=== PATIENT | male | born 1965 | race Caucasian/White ===

== ENCOUNTER 2019-10-30 21:07 | Emergency (ER) | payer SELFPAY ==
[2019-10-30 21:13] VITALS: TEMP 97.8; BMI 23.7
--- NOTE | 2019-10-30 21:33 | PDOC ---
History of Present Illness - General Chief Complaint: Shortness of Breath Stated Complaint: SHORTNESS OF BREATH Time Seen by Provider: 10/30/19 21:33 History Source: Patient Exam Limitations: No Limitations - History of Present Illness Initial Comments: HPI: This is a 54 y/o male, former heavy smoker, with no reported PMH presenting due to shortness of breath for the past day and a half. He stated that he was in the [place] all weekend for the [place] and during the drive home he suddenly experienced "labored breathing." He states the SOB is worse when he is laying down, and improves when he props himself up. He is complaining of accompanying "tightness between my shoulder blades." He denies chest pain, nausea, vomiting, weakness, headache, or LOC. ROS: GENERAL/CONSTITUTIONAL: No fever or chills. No weakness. CARDIOVASCULAR: No chest pain. Yes shortness of breath. RESPIRATORY: No cough, wheezing, or hemoptysis. GASTROINTESTINAL: No nausea, vomiting MUSCULOSKELETAL: "Tightness between shoulder blades", no joint pain NEUROLOGIC: No headache, vertigo, loss of consciousness, or change in strength/sensation. HEMATOLOGIC/LYMPHATIC: No history of blood clots, or anemia EXTREMITIES: No calf swelling, no calf pain ABDOMINAL: Denies abdominal pain, diarrhea, constipation PMH: Denies Meds: Denies Allergies: Denies PE: GENERAL: Awake, alert, and fully oriented, in no acute distress HEAD: No signs of trauma EYES: PERRL, EOMI NECK: Normal ROM LUNGS: Breath sounds equal, clear to auscultation bilaterally. No wheezes, and no crackles HEART: Regular rate and rhythm, normal S1 and S2, no murmurs, rubs or gallops ABDOMEN: Soft, nontender, normoactive bowel sounds. No guarding, no rebound. No masses EXTREMITIES: Normal range of motion, no edema. No clubbing or cyanosis. No cords, erythema, or tenderness NEUROLOGICAL: Cranial nerves II through XII grossly intact. Normal speech, normal gait SKIN: Warm, Dry, normal turgor, no rashes or lesions noted. MDM: 10/30/19 23:46 This is a 54 y/o male former smoker presenting due to sudden onset SOB that started yesterday. Given his smoking history and presentation, a CTA will be done to rule out a PE. - Signed out to Dr. Hodges 10/31/19 00:10 11/03/19 17:54 Past History - Medical History Allergies/Adverse Reactions: Allergies Allergy/AdvReac Type Severity Reaction Status Date / Time No Known Allergies Allergy Verified 10/30/19 21:13 COPD: No - Psycho-Social/Smoking History Smoking History: Never smoked - Substance Abuse Hx (Audit-C & DAST Scrn) How often the patient has a drink containing alcohol: 2-3 times / week Number of drinks the patient has on a typical day: 5 or 6 How often the patient has six or more drinks on one occasion: Weekly Score: In Men: 4 or > Positive; In Women: 3 or > Positive: 8 Screen Result (Pos requires Nsg. Audit-10AR): Positive In the last yr the pt used illegal drug/Rx for NonMed reason: No Score: Yes response is considered Positive: 0 Screen Result (Positive result requires Nsg. DAST-10): Negative *Physical Exam - Vital Signs Last Vital Signs Temp Pulse Resp BP Pulse Ox 97.8 F 62 18 151/87 98 10/30/19 21:10 10/30/19 21:10 10/30/19 21:10 10/30/19 21:10 10/30/19 21:10 ED Treatment Course - LABORATORY CBC & Chemistry Diagram: 10/30/19 22:40 10/30/19 22:40 Discharge - Discharge Information Problems reviewed: Yes Clinical Impression/Diagnosis: Chest tightness, Shortness of breath Condition: Stable Disposition: HOME - Follow up/Referral Referrals: [facility] [place] [facility] at [place] [Provider Group] - Patient Discharge Instructions Patient Printed Discharge Instructions: DI for Shortness of Breath Additional Instructions: Please make a follow up appointment with a primary care doctor (referral provided here). Please use the albuterol inhaler 2 puffs every 4 to 6 hours as needed for your tightness on inhalation. If you experience any new, worsening, or concerning symptoms, including worsening shortness of breath, chest pain, dizziness, headache, leg swelling, or any other concerns, please return to the emergency department. - Post Discharge Activity
[2019-10-30 22:53] LABS: BASO % 0.5 % (0-2.0); EOS % 3.6 % (0-4.5); HEMATOCRIT 44.7 % (35.4-49); LYMPH % 11.5 % (8-40); MCH 31.4 pg (25.7-33.7); MCHC 33.5 g/dl (32.0-35.9); MEAN CELL VOLUME 93.9 fl (80-96); MONO % 7.9 % (3.8-10.2); NEUT % 76.5 % (42.8-82.8); PLATELET COUNT 178 K/MM3 (134-434); RBC 4.76 M/mm3 (4.00-5.60); RDW 12.8 % (11.9-15.9); WHITE BLOOD COUNT 10.5 K/mm3 (4.0-10.0)
[2019-10-30 23:23] LABS: ALK PHOS 95 U/L (45-117); ANION GAP 7 MMOL/L (8-16); BILIRUBIN,TOTAL 0.4 mg/dL (0.2-1); BLOOD UREA NITROGEN 20.3 mg/dL (7-18); CALCIUM 8.7 mg/dL (8.5-10.1); CHLORIDE 107 mmol/L (98-107); CO2 25 mmol/L (21-32); CREATININE 1.3 mg/dL (0.55-1.3); GLUCOSE,RANDOM 106 mg/dL (74-106); POTASSIUM 3.8 mmol/L (3.5-5.1); SGOT/AST 17 U/L (15-37); SGPT/ALT 22 U/L (13-61); SODIUM 139 mmol/L (136-145); TOT PROT 7.5 g/dl (6.4-8.2)
[2019-10-30] MEDS ORDERED: SODIUM CHLORIDE 0.9% 500 ML INFUS.BAG IV ONE (23:42)
--- NOTE | 2019-10-31 00:02 | PDOC ---
Documentation entered by Jefferson Brower SCRIBE, acting as scribe for Marielle Polanco MD. Marielle Polanco MD: This documentation has been prepared by the Inocente longoria Nirvannie, SCRIBE, under my direction and personally reviewed by me in its entirety. I confirm that the documentation accurately reflects all work, treatment, procedures, and medical decision making performed by me. Attending Attestation - Resident Resident Name: Janiya Fonseca - ED Attending Attestation I have performed the following: I have examined & evaluated the patient, The case was reviewed & discussed with the resident, I agree w/resident's findings & plan, Exceptions are as noted - HPI HPI: 10/30/19 23:54 54 yo male presents with c/o shortness of breath after a weekend fly fishing in the [facility] [place] , He quit tobacco use about 8 years ago after smoking for 15 years. He does not see a physician and takes no prescription medications - Physicial Exam PE: 10/31/19 00:00 wnwd 54 yo male p/w shortness of breath that worsens when he is supine head ncat neck supple lungs no wheezing,no crackles cvs [id number] abdomen flat, nontender skin warm and dry neuro axox3, ambulatory, motor strength 5/5, b/l - Medical Decision Making 10/31/19 01:22 ekg is nsr @ 62 bpm negative troponin cxr napd cta chest pending Discharge - Discharge Information Problems reviewed: Yes Clinical Impression/Diagnosis: Chest tightness, Shortness of breath Condition: Stable Disposition: HOME - Follow up/Referral Referrals: [facility] [place] [facility] [place] [Provider Group] - Patient Discharge Instructions Patient Printed Discharge Instructions: DI for Shortness of Breath Additional Instructions: Please make a follow up appointment with a primary care doctor (referral provided here). Please use the albuterol inhaler 2 puffs every 4 to 6 hours as needed for your tightness on inhalation. If you experience any new, worsening, or concerning symptoms, including worsening shortness of breath, chest pain, dizziness, headache, leg swelling, or any other concerns, please return to the emergency department. - Post Discharge Activity
[2019-10-31 01:58] LABS: INR 1.18 (0.83-1.09); PROTHROMBIN TIME (PATIENT) 13.9 SEC (9.7-13.0)
--- NOTE | 2019-10-31 02:37 | PDOC ---
*Physical Exam - Vital Signs Last Vital Signs Temp Pulse Resp BP Pulse Ox 97.8 F 62 16 134/79 97 10/30/19 21:10 10/31/19 00:50 10/31/19 00:50 10/31/19 00:50 10/31/19 00:50 ED Treatment Course - LABORATORY CBC & Chemistry Diagram: 10/30/19 22:40 10/30/19 22:40 - ADDITIONAL ORDERS Additional order review: Laboratory Results 10/31/19 10/30/19 01:30 22:40 PT with INR 13.90 H INR 1.18 H Sodium 139 Potassium 3.8 Chloride 107 Carbon Dioxide 25 Anion Gap 7 L BUN 20.3 H Creatinine 1.3 Est GFR (CKD-EPI)AfAm 71.19 Est GFR (CKD-EPI)NonAf 61.43 Random Glucose 106 Calcium 8.7 Total Bilirubin 0.4 AST 17 ALT 22 Alkaline Phosphatase 95 Creatine Kinase 104 Troponin I < 0.02 Total Protein 7.5 Albumin 4.0 10/30/19 22:40 RBC 4.76 MCV 93.9 MCHC 33.5 RDW 12.8 MPV 10.0 Neutrophils % 76.5 Lymphocytes % 11.5 Monocytes % 7.9 Eosinophils % 3.6 Basophils % 0.5 - Medications Given in the ED: ED Medications Discontinued Medications Generic Name Dose Route Start Last Admin Trade Name Freq PRN Reason Stop Dose Admin Sodium Chloride 1,000 ml 10/30/19 23:42 10/31/19 00:13 Normal Saline - IV 10/30/19 23:43 1,000 ml ONCE ONE Administration Medical Decision Making - Medical Decision Making 10/31/19 Pt received on s/o from Dr. Fonseca. 54M presenting today with shortness of breath. Pending CTA results, repeat trop, repeat EKG. 10/31/19 02:36 CTA mildly limited but no evidence of pulmonary embolism or acute chest pathology. 10/31/19 03:33 Labs reviewed. Laboratory Last Values WBC 10.5 K/mm3 (4.0-10.0) H 10/30/19 22:40 RBC 4.76 M/mm3 (4.00-5.60) 10/30/19 22:40 Hgb 15.0 GM/dL (11.7-16.9) 10/30/19 22:40 Hct 44.7 % (35.4-49) 10/30/19 22:40 MCV 93.9 fl (80-96) 10/30/19 22:40 MCH 31.4 pg (25.7-33.7) 10/30/19 22:40 MCHC 33.5 g/dl (32.0-35.9) 10/30/19 22:40 RDW 12.8 % (11.9-15.9) 10/30/19 22:40 Plt Count 178 K/MM3 (134-434) 10/30/19 22:40 MPV 10.0 fl (7.5-11.1) 10/30/19 22:40 Absolute Neuts (auto) 8.1 K/mm3 (1.5-8.0) H 10/30/19 22:40 Neutrophils % 76.5 % (42.8-82.8) 10/30/19 22:40 Lymphocytes % 11.5 % (8-40) 10/30/19 22:40 Monocytes % 7.9 % (3.8-10.2) 10/30/19 22:40 Eosinophils % 3.6 % (0-4.5) 10/30/19 22:40 Basophils % 0.5 % (0-2.0) 10/30/19 22:40 Nucleated RBC % 0 % (0-0) 10/30/19 22:40 PT with INR 13.90 SEC (9.7-13.0) H 10/31/19 01:30 INR 1.18 (0.83-1.09) H 10/31/19 01:30 Sodium 139 mmol/L (136-145) 10/30/19 22:40 Potassium 3.8 mmol/L (3.5-5.1) 10/30/19 22:40 Chloride 107 mmol/L (98-107) 10/30/19 22:40 Carbon Dioxide 25 mmol/L (21-32) 10/30/19 22:40 Anion Gap 7 MMOL/L (8-16) L 10/30/19 22:40 BUN 20.3 mg/dL (7-18) H 10/30/19 22:40 Creatinine 1.3 mg/dL (0.55-1.3) 10/30/19 22:40 Est GFR (CKD-EPI)AfAm 71.19 10/30/19 22:40 Est GFR (CKD-EPI)NonAf 61.43 10/30/19 22:40 Random Glucose 106 mg/dL (74-106) 10/30/19 22:40 Calcium 8.7 mg/dL (8.5-10.1) 10/30/19 22:40 Total Bilirubin 0.4 mg/dL (0.2-1) 10/30/19 22:40 AST 17 U/L (15-37) 10/30/19 22:40 ALT 22 U/L (13-61) 10/30/19 22:40 Alkaline Phosphatase 95 U/L (45-117) 10/30/19 22:40 Creatine Kinase 104 U/L (26-308) 10/30/19 22:40 Troponin I < 0.02 ng/ml (0.00-0.05) 10/31/19 02:50 Total Protein 7.5 g/dl (6.4-8.2) 10/30/19 22:40 Albumin 4.0 g/dl (3.4-5.0) 10/30/19 22:40 10/31/19 03:42 Pt reassessed. Reports continued chest tightness when he takes a deep breath. Lungs CTAB, no crackles. No leg swelling. Reports mild orthopnea. Will trial albuterol MDI. 10/31/19 04:42 Pt reassessed. Reports moderate improvement after albuterol. Plan to d/c home with albuterol inhaler and PCP f/u. All questions answered. Return precautions given. Pt verbalized understanding, comfort, and agreement with plan. Discharge - Discharge Information Problems reviewed: Yes Clinical Impression/Diagnosis: Chest tightness, Shortness of breath Condition: Stable Disposition: HOME - Admission No - Follow up/Referral [place] [facility]] - Patient Discharge Instructions Patient Printed Discharge Instructions: DI for Shortness of Breath Additional Instructions: Please make a follow up appointment with a primary care doctor (referral provided here). Please use the albuterol inhaler 2 puffs every 4 to 6 hours as needed for your tightness on inhalation. If you experience any new, worsening, or concerning symptoms, including worsening shortness of breath, chest pain, dizziness, headache, leg swelling, or any other concerns, please return to the emergency department. - Post Discharge Activity
[2019-10-31] MEDS ORDERED: ALBUTEROL SO4 HFA INHALER IH ONE ×2 (03:42→04:13)
[2019-10-31 04:53] VITALS: BP 134/75; PULSE 68
--- NOTE | 2019-10-31 10:21 | EKG ---
Test Reason : Blood Pressure : / mmHG Vent. Rate : 062 BPM Atrial Rate : 062 BPM P-R Int : 140 ms QRS Dur : 092 ms QT Int : 406 ms P-R-T Axes : 063 067 066 degrees QTc Int : 412 ms NORMAL SINUS RHYTHM NORMAL ECG NO PREVIOUS ECGS AVAILABLE Confirmed by Jogre Don ([id number]) on 10/31/2019 10:21:17 AM Referred By: Confirmed By:Jorge Don
--- NOTE | 2019-11-01 12:06 | EKG ---
Test Reason : Blood Pressure : / mmHG Vent. Rate : 061 BPM Atrial Rate : 061 BPM P-R Int : 142 ms QRS Dur : 094 ms QT Int : 418 ms P-R-T Axes : 072 069 062 degrees QTc Int : 420 ms NORMAL SINUS RHYTHM NORMAL ECG WHEN COMPARED WITH ECG OF 30-OCT-2019 23:18, NO SIGNIFICANT CHANGE WAS FOUND Confirmed by MD Smith Daniel ([id number]) on 11/01/2019 12:05:31 PM Referred By: Confirmed By:Tomi Smith MD
== END 2019-10-31 04:50 | disposition home or self-care (01) ==
LOC: JER 21:07
PROC: 3E0F7GC Introduction of Other Therapeutic Substance into Respiratory Tract, Via Natural or Artificial Opening (ICD-10-PCS; principal; 2019-10-30)
DX: R07.89 Other chest pain (principal); R06.02 Shortness of breath
CPT/HCPCS: 36415; 71045-TC-FY; 71275-TC; 80053; 82550; 84484; 85025; 85610; 86850; 86900; 86901; 93005; 93010; 99285-25